=== PATIENT | female | born 1985 | race Caucasian/White ===

== ENCOUNTER 2017-02-16 07:54 | Emergency (ER) | payer OTHER ==
--- NOTE | 2017-02-16 09:28 | ED NURSING NOTES ---
Clinical Report - Nurses [facility] [address] [place] [address] 02/16/2017 7:57 Patient: MARLENA NAYLOR TRIAGE Triage time 08:Feb 16 2017. Acuity: LEVEL 4. Chief Complaint: SORE THROAT. --08:06 Lenard Barr R.N. 08:03 02/16/17. BP: 135/72. HR: 68. RR: 18. O2 saturation: 100%. Temp: 98.4 F. Pain level now 04/23. --08:06 Lenard Barr R.N. KANDICE COMA SCORE: Kandice Coma Scale: 15- eyes open spontaneously (4); best verbal response- oriented x 4 (5); best motor response- obeys commands (6). --08:07 Lenard Barr R.N. Weight: 88.4 kg stated. Height/Length: 63 inches Per Patient. BMI: 34.5. --08:06 Lenard Barr R.N. Medications None. --08:05 Lenard Barr R.N. Allergies No Known Drug Allergy. --08:05 Lenard Barr R.N. History Arrived by private vehicle. Historian: patient. Accompanied by friend. Primary physician (Jacky). Onset. (Sunday). She has had mouth sores, hoarseness and ear pain. No fever, sinus pain, enlarged lymph nodes or facial pain. No toothache or swollen jaw. Treatment [employer]OSSW[employer] PU[employer]LE [employer]KER: (salt water and cough drops). PAST MEDICAL HX: Strep throat. No history of dental caries. No history of abscess or mononucleosis. Immunizations: up-to-date. Last normal menstrual period- January 30. SOCIAL HX: Former smoker, end date 2014. No alcohol use or drug use. SELF HARM ASSESSMENT: A self harm assessment was performed. The patient answered "no" to the question "Have you recently felt down, depressed, or hopeless?" and "Do you have thoughts of harming or killing yourself?". FALL RISK ASSESSMENT: Fall risk assessment completed. No fall risk identified. NUTRITIONAL RISK ASSESSMENT: The nutritional risk assessment revealed no deficiencies. FUNCTIONAL ASSESSMENT: Functional assessment: no impairments noted. LEARNING NEEDS ASSESSMENT: The learning needs assessment revealed no barriers. ABUSE ASSESSMENT: Abuse assessment: (yes) The patient was asked "Do you feel safe in your home?". SKIN INTEGRITY ASSESSMENT: Skin integrity risk assessment completed. No skin integrity risk identified. --08:06 Lenard Barr R.N. PROBLEMS: Asthma. --08:05 Lenard Barr R.N. ADDITIONAL SURGERIES: no known surgeries. Interventions ID band on patient. --08:06 Lenard Barr R.N. PHYSICAL ASSESSMENT Ambulatory to room. GENERAL / NEURO / PSYCH: Alert. Oriented X 4. Appears in no acute distress. Appears in pain. HEENT: Sinus tenderness present. Pupils equal, round and reactive to light. Runny nose. Pharyngeal erythema. Mouth within normal limits upon inspection. No dental injury noted. Mucous membranes are pink. RESPIRATORY: Respirations not labored. CVS: Capillary refill less than 2 seconds. SKIN: Skin is warm and dry. Normal skin turgor. --08:07 Lenard Barr R.N. NURSING PROGRESS NOTES Pulse oximeter and NIBP monitor placed on patient. Reassurance given. Call light placed in reach. Side rails up x 1. Bed placed in lowest position. Brakes of bed on. --08:07 Lenard Barr R.N. 08:29 02/16/2017 Prednisone PO Tablets 60 mg given. Allergies verified and confirmed 5 rights. --08:29 Lenard Barr R.N. 08:29 02/16/2017 Hydrocodone-APAP (Hydrocodone-Acetaminophen) PO Oral Suspension 5 mL given. Allergies verified, confirmed 5 rights and sedative warning given to the patient and patient's guide alpine. --08:29 Lenard Barr R.N. 08:29 02/16/2017 Toradol (Ketorolac Tromethamine) IM 60 mg given. Given in the right gluteus law. Allergies verified and confirmed 5 rights. --08:29 Lenard Barr R.N. 09:55 02/16/2017 Amoxicillin PO 500 mg given. Allergies verified and confirmed 5 rights. --09:55 Sahra Mello R.N. DISPOSITION / DISCHARGE Departure time: :55. Condition at departure: unchanged. No learning barriers present. Discharge instructions provided and reviewed with the patient. Reviewed medication(s) information (RX called into [facility] pharmacy for Amoxicillin 500 mg every 8 hrs x 7 days). Reviewed referral to family practice for followup. Verbalized understanding. Written instructions provided. The patient was discharged home and accompanied by guide alpine. She left the Emergency Department ambulatory and via private vehicle. --09:58 Sahra Mello R.N. 09:55 02/16/17. BP: 131/79. HR: 76. RR: 18. O2 saturation: 100%. Temp: 99 F. Pain level now: 02/21. --09:58 Sahra Mello R.N. 10:09 02/16/17. ( [facility] pharmacy called back, and they stated they would not fill the RX, so was called into [facility] pharmacy at [facility]. [facility] pharmacist was informed that her Rx will be there, and to let her know it is at [facility].). --10:09 Sahra Mello R.N. Locked/Released at 02/16/2017 14:11 by Sahra Mello R.N.
--- NOTE | 2017-02-16 09:28 | ED ORDER SUMMARY ---
..... Patient: MARLENA NAYLOR OrderSheet [facility] VisitID: [id number] [place] [address] 32y, F Registration Date/Time: 02/16/2017 ORDER SHEET Weight: 88.4 kg (stated) Allergies: No Known Drug Allergy GENERAL ORDERS: Culture, Throat Urgent (08:44 02/16/2017 Janie ROSEN) (Cancelled: Other8:44 Janie ROSEN) Culture, Strep Screen Urgent (08:44 02/16/2017 Janie ROSEN) (Ack 9:07 Araceli) (9:39 LWhalen R.N.) MEDICATION ORDERS: Prednisone PO 60 mg (NOW) (08:17 02/16/2017 Janie ROSEN) (8:29 LWhalen R.N.) Hydrocodone-APAP PO 5 mL (NOW, HIGH ALERT MEDICATION) (08:17 02/16/2017 Janie ROSEN) (8:29 LWhalen R.N.) Toradol IM 60 mg (NOW) (08:18 02/16/2017 Janie ROSEN) (8:29 LWhalen R.N.) Amoxicillin PO 500 mg (NOW) (09:04 02/16/2017 Janie ROSEN) (9:55 Jc R.N.) IV FLUIDS: ORDER SHEET NOTES: [Electronically signed by Sahra Mello R.N. (14:11 02/16/2017)] [Electronically signed by Jessica Staley MD (08:43 02/19/2017)] [Electronically locked/signed by Sahra Mello R.N. (14:11 02/16/2017)]
--- NOTE | 2017-02-16 09:28 | ED ORDER SUMMARY ---
..... Patient: MARLENA NAYLOR OrderSheet [facility] VisitID: [id number] [place] [address] 32y, F Registration Date/Time: 02/16/2017 ORDER SHEET Weight: 88.4 kg (stated) Allergies: No Known Drug Allergy GENERAL ORDERS: Culture, Throat Urgent (08:44 02/16/2017 Janie ROSEN) (Cancelled: Other8:44 Janie ROSEN) Culture, Strep Screen Urgent (08:44 02/16/2017 Janie ROSEN) (Ack 9:07 Araceli) (9:39 LWhalen R.N.) MEDICATION ORDERS: Prednisone PO 60 mg (NOW) (08:17 02/16/2017 Janie ROSEN) (8:29 LWhalen R.N.) Hydrocodone-APAP PO 5 mL (NOW, HIGH ALERT MEDICATION) (08:17 02/16/2017 Janie ROSEN) (8:29 LWhalen R.N.) Toradol IM 60 mg (NOW) (08:18 02/16/2017 Janie ROSEN) (8:29 LWhalen R.N.) Amoxicillin PO 500 mg (NOW) (09:04 02/16/2017 Janie ROSEN) (9:55 Jc R.N.) IV FLUIDS: ORDER SHEET NOTES: [Electronically signed by Sahra Mello R.N. (14:11 02/16/2017)] [Electronically signed by Jessica Staley MD (08:43 02/19/2017)] [Electronically locked/signed by Sahra Mello R.N. (14:11 02/16/2017)]
--- NOTE | 2017-02-16 09:28 | ED NURSING NOTES ---
Clinical Report - Nurses [address] [place] [address] 02/16/2017 7:57 Patient: MARLENA NAYLOR TRIAGE Triage time 08:Feb 16 2017. Acuity: LEVEL 4. Chief Complaint: SORE THROAT. --08:06 Lenard Barr R.N. 08:03 02/16/17. BP: 135/72. HR: 68. RR: 18. O2 saturation: 100%. Temp: 98.4 F. Pain level now 04/23. --08:06 Lenard Barr R.N. KANDICE COMA SCORE: Kandiec Coma Scale: 15- eyes open spontaneously (4); best verbal response- oriented x 4 (5); best motor response- obeys commands (6). --08:07 Lenard Barr R.N. Weight: 88.4 kg stated. Height/Length: 63 inches Per Patient. BMI: 34.5. --08:06 Lenard Barr R.N. Medications None. --08:05 Lenard Barr R.N. Allergies No Known Drug Allergy. --08:05 Lenard Barr R.N. History Arrived by private vehicle. Historian: patient. Accompanied by friend. Primary physician (Jacky). Onset. (Sunday). She has had mouth sores, hoarseness and ear pain. No fever, sinus pain, enlarged lymph nodes or facial pain. No toothache or swollen jaw. Treatment CHEMICAL COMPOUNDER: (salt water and cough drops). PAST MEDICAL HX: Strep throat. No history of dental caries. No history of abscess or mononucleosis. Immunizations: up-to-date. Last normal menstrual period- January 30. SOCIAL HX: Former smoker, end date 2014. No alcohol use or drug use. SELF HARM ASSESSMENT: A self harm assessment was performed. The patient answered "no" to the question "Have you recently felt down, depressed, or hopeless?" and "Do you have thoughts of harming or killing yourself?". FALL RISK ASSESSMENT: Fall risk assessment completed. No fall risk identified. NUTRITIONAL RISK ASSESSMENT: The nutritional risk assessment revealed no deficiencies. FUNCTIONAL ASSESSMENT: Functional assessment: no impairments noted. LEARNING NEEDS ASSESSMENT: The learning needs assessment revealed no barriers. ABUSE ASSESSMENT: Abuse assessment: (yes) The patient was asked "Do you feel safe in your home?". SKIN INTEGRITY ASSESSMENT: Skin integrity risk assessment completed. No skin integrity risk identified. --08:06 Lenard Barr R.N. PROBLEMS: Asthma. --08:05 Lenard Barr R.N. ADDITIONAL SURGERIES: no known surgeries. Interventions ID band on patient. --08:06 Lenadr Barr R.N. PHYSICAL ASSESSMENT Ambulatory to room. GENERAL / NEURO / PSYCH: Alert. Oriented X 4. Appears in no acute distress. Appears in pain. HEENT: Sinus tenderness present. Pupils equal, round and reactive to light. Runny nose. Pharyngeal erythema. Mouth within normal limits upon inspection. No dental injury noted. Mucous membranes are pink. RESPIRATORY: Respirations not labored. CVS: Capillary refill less than 2 seconds. SKIN: Skin is warm and dry. Normal skin turgor. --08:07 Lenard Barr R.N. NURSING PROGRESS NOTES Pulse oximeter and NIBP monitor placed on patient. Reassurance given. Call light placed in reach. Side rails up x 1. Bed placed in lowest position. Brakes of bed on. --08:07 Lenard Barr R.N. 08:29 02/16/2017 Prednisone PO Tablets 60 mg given. Allergies verified and confirmed 5 rights. --08:29 Lenard Barr R.N. 08:29 02/16/2017 Hydrocodone-APAP (Hydrocodone-Acetaminophen) PO Oral Suspension 5 mL given. Allergies verified, confirmed 5 rights and sedative warning given to the patient and patient's trolley wire installer. --08:29 Lenard Barr R.N. 08:29 02/16/2017 Toradol (Ketorolac Tromethamine) IM 60 mg given. Given in the right gluteus law. Allergies verified and confirmed 5 rights. --08:29 Lenard Barr R.N. 09:55 02/16/2017 Amoxicillin PO 500 mg given. Allergies verified and confirmed 5 rights. --09:55 Sahra Mello R.N. DISPOSITION / DISCHARGE Departure time: :55. Condition at departure: unchanged. No learning barriers present. Discharge instructions provided and reviewed with the patient. Reviewed medication(s) information (RX called into [facility] pharmacy for Amoxicillin 500 mg every 8 hrs x 7 days). Reviewed referral to family practice for followup. Verbalized understanding. Written instructions provided. The patient was discharged home and accompanied by trolley wire installer. She left the Emergency Department ambulatory and via private vehicle. --09:58 Sahra Mello R.N. 09:55 02/16/17. BP: 131/79. HR: 76. RR: 18. O2 saturation: 100%. Temp: 99 F. Pain level now: 02/21. --09:58 Sahra Mello R.N. 10:09 02/16/17. ( [facility] pharmacy called back, and they stated they would not fill the RX, so was called into [facility] pharmacy at [facility]. [facility] pharmacist was informed that her Rx will be there, and to let her know it is at [facility].). --10:09 Sahra Mello R.N. Locked/Released at 02/16/2017 14:11 by Sahra Mello R.N.
--- NOTE | 2017-02-16 09:28 | ED CLINICAL REPORT ---
Clinical Report - Physicians/Mid Levels [facility] [address] [place] [address] 02/16/2017 7:57 Patient: MARLENA NAYLOR Time Seen: 08:11. Arrived- By private vehicle. Historian- patient. HISTORY OF PRESENT ILLNESS Chief Complaint: SORE THROAT. This started several days ago and is still present. Pain described as moderate. The patient has had a sore throat. No mouth sores, nasal discharge or congestion, ear pain or toothache. No swollen jaw or face, jaw pain or facial pain. Similar symptoms previously: Occasionally. Recent medical care: Not recently seen/assessed. REVIEW OF SYSTEMS The patient has had a subjective fever. No eye discomfort, cough, difficulty breathing, chest pain or nausea. No diarrhea, abdominal pain, difficulty with urination, headache or fainting episodes. No joint pain, skin rash, enlarged lymph nodes or vomiting. Denies current . All systems otherwise negative, except as recorded above. PAST HISTORY Problems: Strep Throat. Asthma. Additional Surgeries: no known surgeries. Medications: None. Allergies: No Known Drug Allergy. SOCIAL HISTORY Former smoker. No alcohol use or drug use. ADDITIONAL NOTES The nursing notes have been reviewed. PHYSICAL EXAM Vital Signs: 02/16/2017 08:03 BP: 135/72. HR: 68. RR: 18. O2 saturation: 100%. Temp: 98.4 F. Have been reviewed. Appearance: Alert. No acute distress. Head: Normal external inspection. Eyes: Pupils equal, round and reactive to light. Conjunctivae and eyelids normal. ENT: Nose normal. Moderate generalized pharyngeal erythema with right tonsillar exudate and left tonsillar exudate. Lips normal. Gums normal. No trismus present. Uvula midline. Neck: Trachea midline. No adenopathy. Neck supple. CVS: Normal heart rate and rhythm. Heart sounds normal. Pulses normal. Respiratory: No respiratory distress. Breath sounds normal. Abdomen: Soft. No organomegaly. Skin: Normal skin color. No rash. Normal skin turgor. Extremities: Extremities exhibit normal ROM. Extremities nontender. Neuro: Oriented X 3. No motor deficit. No sensory deficit. LABS, X-RAYS, AND EKG Laboratory Tests: Culture, Strep Screen: (SALUD: 02/16/2017 08:20) ( MsgRcvd 02/16/2017 08:57) Final results Test Result Flag Units (Reference) RAPID STREP SCREEN - THROAT DATE: 02/16/17 NEGATIVE SCREEN: RAPID STREP SCREEN NEGATIVE; CONFIRMATION TO FOLLOW . Pulse Oximetry: 02/16/2017 08:03 O2 saturation: 100%. (FIO2 - room air). Interpretation: normal. PROGRESS AND PROCEDURES Course of Care: Patient was treated symptomatically with prednisone, Toradol, and hydrocodone elixir. Patient clinically appeared to have strep pharyngitis, but due to the discomfort of pharyngeal swabbing, a suboptimal sample was obtained. This was sent to the lab andthe preliminary result was negative. I did opt to treat the patient with amoxicillin anyway, based on her symptoms and findings on physical exam. Patient counseled in person regarding the patient's stable condition, test results, diagnosis and need for follow-up. Concerns were addressed. Old medical records reviewed. Disposition: Discharged. Condition: stable and improved. CLINICAL IMPRESSION Acute streptococcal pharyngitis INSTRUCTIONS Drink plenty of fluids. (Your rapid strep test was negative, but as we discussed, sometimes this initial test is negative, but the culture turns out positive. Since your throat very much has the appearance of strep, we will start you on antibiotics.). Warnings: GENERAL WARNINGS: Return or contact your physician immediately if your condition worsens or changes unexpectedly, if not improving as expected, or if other problems arise. Prescription Medications: Amoxicillin 500 mg tablets: take 1 orally every 8 hours for 7 days. No refills. Follow-up: Follow up with your doctor in seven days if not better. Understanding of the discharge instructions verbalized by patient. (Electronically signed by Jessica Staley MD 02/19/2017 8:43)
--- NOTE | 2017-02-19 08:43 | ED DISCHARGE INSTRUCTIONS ---
Patient: MARLENA NAYLOR General Instructions [facility] VisitID: [id number] [place] [address] 32y, F Registration Date/Time: 02/16/2017 Acute streptococcal pharyngitis INSTRUCTIONS Drink plenty of fluids. (Your rapid strep test was negative, but as we discussed, sometimes this initial test is negative, but the culture turns out positive. Since your throat very much has the appearance of strep, we will start you on antibiotics.). Warnings: GENERAL WARNINGS: Return or contact your physician immediately if your condition worsens or changes unexpectedly, if not improving as expected, or if other problems arise. Prescription Medications: Amoxicillin 500 mg tablets: take 1 orally every 8 hours for 7 days. No refills. Follow-up: Follow up with your doctor in seven days if not better. Understanding of the discharge instructions verbalized by patient. ADDITIONAL INFORMATION Pharyngitis (Sore Throat),Report Pending Pharyngitis (sore throat) is often due to a virus, but can also be caused by thestrepbacteria. This is calledstrep throat. Both viral and strep infection can cause throat pain that is worse when swallowing, aching all over with headache and fever. Both types of infections are contagious. They may be spread by coughing, kissing or touching others after touching your mouth or nose. A test has been done to determine whether or not you have strep throat. Call this facility as directed for the result. If it is positive for strep infection you will need to take antibiotics. A prescription can be called in to your pharmacy at that time. If the test is negative, you probably have a viral pharyngitis and it will not require antibiotic treatment. Home Care: If your symptoms are severe, rest at home for the first 2-3 days. If you are told that your test is positive for strep, you should be off work and school for the first two days of antibiotic treatment. After that, you will no longer be contagious. Children: Use acetaminophen (Tylenol) for fever, fussiness or discomfort. In infants over six months of age, you may use ibuprofen (Children's Motrin) instead of Tylenol. [NOTE: If your child has chronic liver or kidney disease or ever had a stomach ulcer or GI bleeding, talk with your doctor before using these medicines.] (Aspirin should never be used in anyone under 18 years of age who is ill with a fever. It may cause severe liver damage.)Adults: You may use acetaminophen (Tylenol) or ibuprofen (Motrin, Advil) to control pain or fever, unless another medicine was prescribed for this. [NOTE: If you have chronic liver or kidney disease or ever had a stomach ulcer or GI bleeding, talk with your doctor before using these medicines.] Throat lozenges or sprays (Chloraseptic and others), or gargling with warm salt water will reduce throat pain. Dissolve 1/2 teaspoon of salt in 1 glass of warm water. This is especially useful just before meals. Follow Up with your doctor as advised by our staff if you are not improving over the next week. Get Prompt Medical Attention if any of the following occur: Fever of 100.4F (38C) oral or higher, not better with fever medication New or worsening ear pain, sinus pain or headache Painful lumps in the back of your neck Unable to swallow liquids or open your mouth wide due to throat pain Trouble breathing or noisy breathing Muffled voice New rash You have been given the following additional information: Pharyngitis, Report Pending (Electronically signed by Jessica Staley MD 02/19/2017 8:43)
--- NOTE | 2017-02-19 08:43 | ED MED RECONCILIATION SUMMARY ---
Patient: MARLENA NAYLOR Medication Reconciliation Report [facility] VisitID: [id number] [place] [address] 32y, F Registration Date/Time: 02/16/2017 Weight: 88.4 kg Height/Length: 63 in. BMI: 34.5 ALLERGIES: No Known Drug Allergy The patient's Home Medications are listed below: NONE. The source(s) of the original Home Medication information: Not obtained. The following Medications were given to the patient in the Emergency Department: Prednisone [PO] PO 60 mg, administered: 02/16/2017 8:29:00 AM Hydrocodone-APAP [PO] PO 5 mL, administered: 02/16/2017 8:29:00 AM Toradol [IM] IM 60 mg, administered: 02/16/2017 8:29:00 AM Amoxicillin [PO] PO 500 mg, administered: 02/16/2017 9:55:00 AM The following Medications were prescribed to the patient: Amoxicillin 500 mg tablets: take 1 orally every 8 hours for 7 days. No refills. -- Jessica Staley MD
--- NOTE | 2017-02-19 08:43 | ED MED RECONCILIATION SUMMARY ---
Patient: MARLENA NAYLOR Medication Reconciliation Report [facility] VisitID: [id number] [place] [address] 32y, F Registration Date/Time: 02/16/2017 Weight: 88.4 kg Height/Length: 63 in. BMI: 34.5 ALLERGIES: No Known Drug Allergy The patient's Home Medications are listed below: NONE. The source(s) of the original Home Medication information: Not obtained. The following Medications were given to the patient in the Emergency Department: Prednisone [PO] PO 60 mg, administered: 02/16/2017 8:29:00 AM Hydrocodone-APAP [PO] PO 5 mL, administered: 02/16/2017 8:29:00 AM Toradol [IM] IM 60 mg, administered: 02/16/2017 8:29:00 AM Amoxicillin [PO] PO 500 mg, administered: 02/16/2017 9:55:00 AM The following Medications were prescribed to the patient: Amoxicillin 500 mg tablets: take 1 orally every 8 hours for 7 days. No refills. -- Jessica Staley MD
--- NOTE | 2017-02-19 08:43 | ED MAR SUMMARY ---
..... Medication Administration Record [facility] [address] [place] [address] Patient: MARLENA NAYLOR Visit ID: [id number] 32y, F Weight: 88.4 kg Height/Length: 63 in BMI: 34.5 ALLERGIES: No Known Drug Allergy Given 08:02/16/2017 Lenard Barr R.N. Medication Administered: PREDNISONE [PO], Dose: 60 mg Tablets PO. Medication Ordered: Prednisone PO 60 mg (NOW). Given 08:02/16/2017 Lenard Barr R.N. Medication Administered: HYDROCODONE-APAP [PO] (HYDROCODONE-ACETAMINOPHEN), Dose: 5 mL Oral Suspension PO. Medication Ordered: Hydrocodone-APAP PO 5 mL (NOW, HIGH ALERT MEDICATION). Given 08:02/16/2017 Lenard Barr R.N. Medication Administered: TORADOL [IM] (KETOROLAC TROMETHAMINE), Dose: 60 mg IM. Medication Ordered: Toradol IM 60 mg (NOW). Given 09:55 02/16/2017 Sahra Mello R.N. Medication Administered: AMOXICILLIN [PO], Dose: 500 mg PO. Medication Ordered: Amoxicillin PO 500 mg (NOW).
--- NOTE | 2017-02-19 08:43 | ED MAR SUMMARY ---
..... Medication Administration Record [facility] [address] [place] [address] Patient: MARLENA NAYLOR Visit ID: [id number] 32y, F Weight: 88.4 kg Height/Length: 63 in BMI: 34.5 ALLERGIES: No Known Drug Allergy Given 08:02/16/2017 Lenard Barr R.N. Medication Administered: PREDNISONE [PO], Dose: 60 mg Tablets PO. Medication Ordered: Prednisone PO 60 mg (NOW). Given 08:02/16/2017 Lenard Barr R.N. Medication Administered: HYDROCODONE-APAP [PO] (HYDROCODONE-ACETAMINOPHEN), Dose: 5 mL Oral Suspension PO. Medication Ordered: Hydrocodone-APAP PO 5 mL (NOW, HIGH ALERT MEDICATION). Given 08:02/16/2017 Lenard Barr R.N. Medication Administered: TORADOL [IM] (KETOROLAC TROMETHAMINE), Dose: 60 mg IM. Medication Ordered: Toradol IM 60 mg (NOW). Given 09:55 02/16/2017 Sahra Mello R.N. Medication Administered: AMOXICILLIN [PO], Dose: 500 mg PO. Medication Ordered: Amoxicillin PO 500 mg (NOW).
== END 2017-02-16 09:54 | disposition home or self-care (01) ==
LOC: ED SRH 07:54
DX: J02.0 Streptococcal pharyngitis (principal)
CPT/HCPCS: 90154; 90159